=== PATIENT | female | born 1985 | race Two or more races ===

== ENCOUNTER 2019-07-18 10:06 | Emergency (ER) | payer SELFPAY ==
[~2019-07-18] VITALS: Ht 172.7 cm; Wt 70.3 kg
[2019-07-18 10:24] VITALS: BP 111/72
--- NOTE | 2019-07-18 10:24 | NUR ---
ED Nurse Note: Patient walked in to ER from home due to Lt upper posterior shoulder abscess. per pt she has had it for few months but it got bigger 5 days ago and getting bigger and painful. pt aao x4 and ambulatory. skin clean and intact. calm and cooperative. pt is in gown.
--- NOTE | 2019-07-18 10:40 | NUR ---
ED Nurse Note: I&D at bedside by MAX.
[2019-07-18] MEDS ORDERED: BACTRIM DS TAB1 EAC1 ORAL (10:54)
--- NOTE | 2019-07-18 10:54 | Emergency Room Report ---
History of Present Illness General Chief Complaint: Skin Rash/Abscess Source: Patient Present Illness HPI 33-year-old female presents with abscess on her left upper shoulder no fevers no chills, patient states there is an achy pain mild, no aggravating relieving factors patient presents for I&D Allergies: Coded Allergies: DIPHENHYDRAMINE (Verified Allergy, Unknown, 07/18/19) GUAIFENESIN (Verified Allergy, Unknown, 07/18/19) Patient History Past Medical History: see triage record Last Menstrual Period: 07/2019 Now: No Reviewed Nursing Documentation: PMH: Agreed; PSxH: Agreed Nursing Documentation-PMH Hx Asthma: Yes Review of Systems All Other Systems: negative except mentioned in HPI Physical Exam Vital Signs Date Time Temp Pulse Resp B/P (MAP) Pulse Ox O2 Delivery O2 Flow Rate FiO2 07/18/19 10:16 98.1 87 18 111/72 (85) 96 Room Air General Appearance: well appearing, no apparent distress Head: normocephalic, atraumatic ENT: hearing grossly normal, normal voice Neck: full range of motion, supple Respiratory: no respiratory distress, speaking full sentences Musculoskeletal: no calf tenderness Neurologic: alert, normal gait Psychiatric: mood/affect normal Skin: other - Left upper shoulder 3 x 4 cm abscess Procedures Incision and Drainage Incision and Drainage : Consent: Verbal Site: left upper back, posterior shoulder Blade Size: 11 I & D Procedure: betadine prep, sterile drapes applied, sterile dressing applied Wound Location: back Wound's Depth, Shape: superficial Wound Length (cm): 3 Wound Explored: clean Anesthesia: Lidocaine w/ Epi Volume Anesthetic (ccs): 5 Splint Applied?: No Sling Applied?: No Patient Tolerated: Well Complications: None Medical Decision Making Diagnostic Impression: Primary Impression: Abscess ER Course Patient presents with left upper shoulder abscess most likely infected epidermoid cyst, will I&D Patient tolerated I&D Disposition home with return precautions Last Vital Signs Date Time Temp Pulse Resp B/P (MAP) Pulse Ox O2 Delivery O2 Flow Rate FiO2 07/18/19 10:24 98.1 72 18 111/72 96 Room Air Disposition: HOME, SELF-CARE Condition: Stable Scripts Trimethoprim/Sulfamethoxazole 160/800* (BACTRIM DS TABLET*) 1 Each Tablet 1 TAB ORAL Q12H, #14 TAB 0 Refills Prov: Tj Sandra MD 07/18/19 Referrals: NOT CHOSEN IPA/,REFERRING (PCP) [facility]. [facility] Patient Instructions: Abscess Additional Instructions: The patient was provided with discharge instructions, notified to follow-up with a primary care doctor and or specialist in the next 24-48 hours, and to return to the ED if they have worsening of their symptoms. Please note that this report is being documented using [employer] technology. This can lead to erroneous entry secondary to incorrect interpretation by the dictating instrument. Tj Sandra MD Jul 18, 2019 10:54
[2019-07-18 10:57] VITALS: BP 111/72
--- NOTE | 2019-07-18 10:58 | NUR ---
ED Nurse Note: Pt cleared by health care Provider for discharge. DC instructions/prescription was given and explained to pt and verbalized understanding of teachings. All medical deviecs such as ID band removed. Pt is AAO x4, ambulatory and left with all personal belongings.
--- NOTE | 2019-07-18 10:59 | NUR ---
ED Nurse Note: 2 packs of gauze and tape were provided.
== END 2019-07-18 11:00 | disposition home or self-care (01) ==
LOC: EMR 10:10
DX: L02.414 Cutaneous abscess of left upper limb (principal); J45.909 Unspecified asthma, uncomplicated; Z88.8 Allergy status to other drugs, medicaments and biological substances
CPT/HCPCS: 10060; 81025; 99283

== ENCOUNTER 2019-10-27 13:07 | Emergency (ER) | payer MEDICAID ==
[~2019-10-27] VITALS: Ht 170.2 cm; Wt 70.3 kg
[~2019-10-27 13:07] MED LIST: BACTRIM DS TAB1 EAC1 ORAL
[2019-10-27 13:16] VITALS: BP 109/73
--- NOTE | 2019-10-27 13:18 | NUR ---
ED Nurse Note: pt walked in to ER from home with a friend due to bilateral hip pain 08/13 since Saturday. pt denied trauma. per pt, she has had the same symptom occasionally but this time pt is not getting better and pt is having difficulty to walk. pt aao x4 and ambulatory but impaired. calm but gramicing for hip pain. no cardiac or pulmonary distress noted at this moment.
--- NOTE | 2019-10-27 13:21 | NUR ---
ED Nurse Note: ERMD at bedside.
[2019-10-27] MEDS ORDERED: IBUPROFEN600 MG ORAL (13:32)
[2019-10-27 13:42] VITALS: BP 112/79
--- NOTE | 2019-10-27 13:43 | NUR ---
ED Nurse Note: Pt cleared by health care Provider for discharge. Patient verbalized improved pain level from 10/10 to 5/10. DC instructions/prescription was given and explained to pt and verbalized understanding of teachings. All medical deviecs such as ID band removed. Pt is AAO x4, ambulatory and left with all personal belongings.
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
== END 2019-10-27 13:40 | disposition home or self-care (01) ==
LOC: EMR 13:35
DX: S76.912A Strain of unspecified muscles, fascia and tendons at thigh level, left thigh, initial encounter (principal); X58.XXXA Exposure to other specified factors, initial encounter; Y92.9 Unspecified place or not applicable; Z88.8 Allergy status to other drugs, medicaments and biological substances
CPT/HCPCS: 99282